=== PATIENT | female | born 1975 | race Caucasian/White ===

== ENCOUNTER 2017-12-11 11:10 | Emergency (ER) | payer BC, OTHER ==
[2017-12-11 11:24] VITALS: BP 120/89
[2017-12-11] MEDS ORDERED: Acetaminophen/oxyCODONE 325-5 MG Tab PO ONE (11:50)
[2017-12-11] MEDS ORDERED: Diphtheria,Pertussis(Acell),Tetanus Vaccine 0.5 ML SDV IM ONE (11:50)
--- NOTE | 2017-12-11 11:56 | EDM.PDOC ---
ED HPI GENERAL MEDICAL PROBLEM - General Chief Complaint: Lower Extremity Injury/Pain Stated Complaint: RT FOOT INJURY Time Seen by Provider: 12/11/17 11:41 Source of Information: Reports: Patient History Limitations: Reports: No Limitations - History of Present Illness INITIAL COMMENTS - FREE TEXT/NARRATIVE: 42-year-old female presents for evaluation and treatment of a right foot injury. Patient reports that she fell backwards onto a floor [place]. She has a laceration to the ventral aspect of her third and fourth toes. She reports pain across the dorsal right foot and pain to toes 3 through 5. States she is unable to move the toes very much. Reports numbness and tingling to the foot and toes. Injury occurred about 2 hours prior to arrival. Nothing for pain prior to arrival. Unsure of last tetanus. Onset: Today Location: Reports: Lower Extremity, Right Quality: Reports: Throbbing Right Feet Pain Score (Numeric/FACES): 4 - Related Data Allergies Allergy/AdvReac Type Severity Reaction Status Date / Time No Known Allergies Allergy Verified 12/11/17 11:16 Home Meds: Home Meds Acetaminophen/HYDROcodone [Joy 325-5 MG] 1 tab PO Q6H PRN #10 tablet 12/11/17 [Rx] Cephalexin 500 mg PO BID #14 capsule 12/11/17 [Rx] Ondansetron [Zofran ODT] 4 mg PO Q6H PRN #15 tab.dis 12/11/17 [Rx] Social & Family History - Tobacco Use Smoking Status *Q: Current Every Day Smoker Years of Tobacco use: 30 Packs/Tins Daily: 0.5 Used Tobacco, but Quit: No Second Hand Smoke Exposure: No - Caffeine Use Caffeine Use: Reports: None - Recreational Drug Use Recreational Drug Use: No Review of Systems - Review of Systems Review Of Systems: See Below Musculoskeletal: Reports: Foot Pain (right) Skin: Reports: Wound (ventral toes 3 and 4) Neurological: Reports: Numbness, Tingling, Difficulty Walking ED EXAM, GENERAL - Physical Exam Exam: See Below Exam Limited By: No Limitations General Appearance: Alert, WD/WN, No Apparent Distress Respiratory/Chest: No Respiratory Distress Cardiovascular: Normal Peripheral Pulses Peripheral Pulses: 2+: Posterior Tibial (L), Posterior Tibial (R) Extremities: Other (swelling and bruising, approximately 2cm, to the dorsal right foot over the cuniforms; ) Neurological: Alert, Oriented, Normal Cognition Psychiatric: Normal Affect, Normal Mood Skin Exam: Warm, Dry, Wound/Incision (1.5cm subcutanteous laceration to the vetnral 3rd toe, right; 0.2cm superficial laceration to the ventral right 4 th toe) ED TRAUMA EXTREMITY PROCEDURES - Laceration/Wound Repair Proximal Ventral Toes Lac/Wound Length In cm: 1.5 Appearance: Subcutaneous, Linear Distal NVT: Neuro & Vascular Intact, No Tendon Injury Closed With: Dermabond Sterile Dressing Applied: None Tetanus Status Addressed: Yes Complications: No - Splinting Right Lower Extremity Splint Site: right foot Pre-Procedure NV Status: Normal Post-Procedure NV Status: Normal Splint Material: Other (orthoglass) Splint Design: Posterior Applied & Form Fitted By: Provider, Nurse Provider Post-Splint Application NV Check: NV Status Normal, Good Position Complications: No Course - Vital Signs Last Recorded V/S: Last Vital Signs Temp 36.6 C 12/11/17 11:16 Pulse 71 12/11/17 11:16 Resp 18 12/11/17 11:16 BP 120/89 12/11/17 11:16 Pulse Ox 95 12/11/17 11:16 - Orders/Labs/Meds Orders: Active Orders 24 hr Category Date Time Status Vaccines to be Administered [RC] PER UNIT ROUTINE Care 12/11/17 11:50 Active Meds: Medications Discontinued Medications Generic Name Dose Route Start Last Admin Trade Name Freq PRN Reason Stop Dose Admin Diphtheria/Tetanus/Acell Pertussis 0.5 ml 12/11/17 11:50 12/11/17 12:08 Adacel IM 12/11/17 11:51 0.5 ml .ONCE ONE Administration Ondansetron HCl 4 mg 12/11/17 13:46 12/11/17 13:49 Zofran Odt PO 12/11/17 13:47 4 mg ONETIME ONE Administration Oxycodone/Acetaminophen 1 tab 12/11/17 11:50 12/11/17 12:06 Percocet 325-5 Mg PO 12/11/17 11:51 1 tab ONETIME ONE Administration - Radiology Interpretation Free Text/Narrative:: Right foot: Four views of the right foot were obtained. Comparison: No prior study. Plantar spur is seen. Overlying bandage is noted overlapping the toes. No discrete fracture, dislocation or other bony abnormality is seen. Impression: 1. Overlying bandage. 2. Plantar spur. 3. No additional abnormality is appreciated on right foot exam. - Re-Assessments/Exams Free Text/Narrative Re-Assessment/Exam: 12/11/17 14:06 Patient feels improved after the Percocet. Despite negative xray, concern for fx to the middle cuneiform. Treated conservatively with splint. Will have her follow-up in 7-10 days with ortho for a repeat xray. Discussed CT of the foot today, however, this would likely no chagne treatment, decided to rexray in one week. Discharge instructions as documented. Departure - Departure Time of Disposition: 14:07 Disposition: Home, Self-Care 01 Condition: Fair Clinical Impression: Laceration, Foot injury, Contusion - Discharge Information Prescriptions: Acetaminophen/HYDROcodone [Joy 325-5 MG] 1 tab PO Q6H PRN #10 tablet PRN Reason: Pain Cephalexin 500 mg PO BID #14 capsule Ondansetron [Zofran ODT] 4 mg PO Q6H PRN #15 tab.dis PRN Reason: Nausea Instructions: Foot Contusion, [id number], Laceration Care, Adult Referrals: PCP,None [Primary Care Provider] - Travis Sorto DO [Physician] - Forms: ED Department Discharge Additional Instructions: you were given medication in the ER that can affect your ability to drive and operate machinery. Do not drive or operate machinery within 12 hours of receiving prescription narcotic pain medication. Keflex 1 Twice a day for 7 days. Monitor the wound for signs of infection such as increased swelling, pus or redness. Present to the clinic or the ER should these develop. may wash the area with gentle soap and water. Do not apply antibacterial ointment as this will break down the glue. the glue should come off on its own about 7 days. Follow-up with orthopedics in 7-10 days for recheck or foot. He will likely require a follow-up x-ray. Recommend Dr. Sorto at the [facility]. Call [phone] to schedule an appointment with him. Zofran 1 tab sublingual every 6 hours as needed for nausea. Use the crutches until you are seen for follow-up with orthopedics. Recommend elevating the foot as much as possible. Recommend [id number] Tylenol or Motrin for pain. Do not take more than 4 g of Tylenol from all sources in 1 day. Do not take more than 3200 mg of ibuprofen from all sources in 1 day. For pain not relieved by Tylenol or Motrin you may take Joy one half to 1 tab every 4-6 hours. Joy can be habit-forming , recommend you take as few of these as needed to control your pain. Do not drive or operate machinery within 12 hours of taking Joy. please return to the ER if your symptoms change or worsen. - My Orders Last 24 Hours: My Active Orders 12/11/17 11:50 Vaccines to be Administered [RC] PER UNIT ROUTINE - Assessment/Plan Last 24 Hours: My Active Orders 12/11/17 11:50 Vaccines to be Administered [RC] PER UNIT ROUTINE
--- NOTE | 2017-12-11 13:08 | CR ---
Right foot: Four views of the right foot were obtained. Comparison: No prior study. Plantar spur is seen. Overlying bandage is noted overlapping the toes. No discrete fracture, dislocation or other bony abnormality is seen. Impression: 1. Overlying bandage. 2. Plantar spur. 3. No additional abnormality is appreciated on right foot exam. Diagnostic code #2
[2017-12-11] MEDS ORDERED: Ondansetron 4 MG Tab.DIS PO ONE (13:46)
== END 2017-12-11 14:25 | disposition home or self-care (01) ==
LOC: JD.ED 11:10
DX: S91.114A Laceration without foreign body of right lesser toe(s) without damage to nail, initial encounter (principal); M77.9 Enthesopathy, unspecified; F17.210 Nicotine dependence, cigarettes, uncomplicated; Z23 Encounter for immunization; W18.30XA Fall on same level, unspecified, initial encounter
CPT/HCPCS: 12001; 29515; 73630; 90471; 90715; 99284; A9270; 99283-25